=== PATIENT | female | born 1985 | race African-American/Black ===

== ENCOUNTER 2025-01-26 21:42 | Emergency (ER) | payer SELFPAY ==
[2025-01-26 21:52] VITALS: BP 187/111
[2025-01-27 00:03] VITALS: BP 175/112
--- NOTE | 2025-01-27 00:15 | ED.GENMED ---
History of Present Illness
General
Chief Complaint: Musculo-Skeletal Complaint
Source: patient
Exam Limitations: none
Time Seen by Provider: 01/27/25 00:01
Nursing documentation reviewed up to this point in time: agreed with
History of Present Illness
History of Present Illness:
39-year-old woman with no significant past medical history, takes no medicines on a daily basis presents with 1 week history of left shoulder pain. She states left shoulder pain began upon waking approximately 1 week ago, has been persistent and
worsening throughout the week, radiating to her left lateral neck, left upper chest wall as well as to her left upper arm. 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 She has been taking aspirin, 975 mg
sporadically, only once per day with the last dose this morning. No significant improvement with the aspirin.
She denies cough nor shortness of breath. Left shoulder pain is worse with movement of her shoulder, worse with rotation of her neck and occasionally worse with deep breath.
She has not had a rash, no fever no chills, no weakness nor numbness. No history of similar episodes in the past.
She denies leg pain or swelling but did drive to and from [facility] 2 weeks ago.
Last menstrual period 2 to 3 months ago, denies chance of states her menses is generally irregular.
Past History
Past History
ED Past Medical History: None
ED Past Surgical History: None
Social History
Tobacco: Non-smoker
Alcohol: None
Drug: None
Personal: Single
Living: with family
Employment: Employed
Family History
Family History: Hypertension
Phy Exam
Physical Exam
Physical Exam:
GENERAL: 39-year-old overweight woman appears her stated age, bright and alert, pleasant, appears mildly uncomfortable but easily communicative. Significantly hypertensive. Monitor shows normal sinus rhythm to mild sinus tachycardia.
EYE: pupils equal and reactive. anicteric
NECK: Supple, no midline bony tenderness, no meningismus, no significant adenopathy. There is mild tenderness left lateral paracervical musculature as well as mild to moderate tenderness left superior trapezius musculature.
ENT: posterior pharynx is clear, oral mucosa is moist. TM clear b/l, nares patent.
CARDIAC: Regular rate rhythm, mildly tachycardic. no murmur. Mild tenderness left upper chest wall. No crepitus nor palpable bony abnormality.
LUNGS: Clear breath sounds bilaterally, no acute respiratory distress, no wheezes/rales/rhonchi
ABDOMEN: Soft, nondistended, without focal tenderness. normoactive BS.
NEUROLOGICAL: Alert and oriented x3, no focal neuro deficits.
SKIN: Warm and dry, normal color, skin intact. No rash.
MUSCULOSKELETAL: No C/C/E. peripheral pulses are full and equal b/l. Moderate tenderness about the left shoulder. Full range of motion with increased pain with abduction greater than 90 degrees. No soft tissue swelling, no crepitus.
PSYCH: Normal and appropriate interaction.
Course
Orders/Labs/Results
Orders:
Orders
01/26/25 21:44
EKG [Electrocardiogram (*1)] Stat
Reason for Study: Chest Pain
EKG- Treatment ONCE
01/27/25 00:14
Ketorolac [Toradol] 30 mg IV NOW STA
Test Result ONCE
01/27/25 00:34
Complete Blood Count/With Diff Urgent
Comprehensive Metabolic Panel Urgent
D-Dimer Urgent
HCG, Serum Qualitative Screen Urgent
TSH Reflex To Free T4 Urgent
Troponin I Urgent
01/27/25 01:39
Shoulder, Left, Trauma CR [CR Shoulder, Trauma - Left] Urgent
Comment:
Reason For Exam: pain left shoulder x 1 week
01/27/25 03:16
Prednisone [Deltasone] 50 mg PO NOW STA
Abnormal Lab Results
01/27/25
00:34
Hgb 11.5 L g/dL
(12.0-16.0)
Hct 35.4 L %
(37.0-47.0)
MCV 73.6 L fL
(81.0-99.0)
MCH 23.9 L pg
(27.0-31.0)
MCHC 32.5 L g/dL
(33.0-37.0)
RDW 15.5 H %
(11.5-14.5)
MPV 12.7 H fL
(7.4-10.4)
Absolute Neuts (auto) 7.7 H 10^3/uL
(1.4-6.5)
Chloride 109 H mmol/L
(98-107)
Creatinine 1.2 H mg/dL
(0.6-1.0)
Glucose 128 H mg/dl
(70-99)
01/27/25 00:34
01/27/25 00:34
Vital Signs
Initial and Last Documented VS:
Initial Vital Signs
Temp Pulse Resp BP Pulse Ox
98.2 F 117 20 187/111 97
01/26/25 21:52 01/26/25 21:52 01/26/25 21:52 01/26/25 21:52 01/26/25 21:52
Last Documented Vital Signs
Temp Pulse Resp BP Pulse Ox
98.2 F 86 23 158/95 95
01/26/25 21:52 01/27/25 02:00 01/27/25 02:00 01/27/25 02:00 01/27/25 02:00
MDM/Problems Addressed
Differential Diagnosis Includes:
Concern for left shoulder strain/tendinitis, trapezius rommel-fasciitis.
Patient noted to be significantly hypertensive as well as mild sinus tachycardia, and there is an element of pleuritic pain, worse with deep breath. Concern for potential PE, ACS, pleurisy, pneumonia, dissection.
No radicular signs or symptoms, no focal neurologic deficits.
EKG shows sinus tachycardia, nonspecific ST-T wave abnormalities. No old EKG to compare.
Will check labs including troponin, D-dimer. Will trial a dose of Toradol.
Will consider imaging depending on laboratory results and clinical course.
*Radiology
Radiology exam reviewed: preliminary read by ED provider (Left shoulder x-rays unremarkable.)
*Pulse Oximetry
Patient hypoxic: no
*EKG
Interpreted by ED Provider?: Yes
Interpretation: abnormal
Comparison EKG: no comparison EKG present
Rate: tachycardiac
Rhythm: sinus
[place]: normal axis
Interval: normal interval
QRS Pattern: normal QRS
Ischemia: non-specific ST changes
*Allied Health Instructor Interpretation
Rate: normal and tachycardiac
*Critical Care Note
Total Time (30-74mins, 75-104mins- exclusive of procedures): Not Applicable
Update Note
Update Note:
03:10
Patient sleeping upon reevaluation. Awakens easily.
Notes moderate improvement in pain.
Left shoulder x-ray is unremarkable.
Hypertension improving. 150/90. Patient denies history of hypertension but strong family history of hypertension. She states her blood pressure was reportedly normal with last visit with her PCP which was approximately 1 year ago.
Labs are unremarkable including negative D-dimer, normal troponin. Creatinine 1.2 thus we will hold off on additional NSAIDs and instead will plan for a course of prednisone. May take Tylenol as needed for mild pain. A prescription for tramadol
will be provided for as needed moderate pain.
Recommend rest, local heat with prompt follow-up with PCP for recheck.
ED Attending Note
-
Portions of this chart may have been created with voice recognition software.� Occasional wrong word or��sound alike� substitutions may have occurred due to the inherent limitations of voice recognition software.
Discharge Plan
Departure
Patient Disposition: Home (Routine Discharge)
Date of Disposition: 01/27/25
Time of Disposition: 03:13
Patient with high blood pressure during this ER visit?: Yes
Condition: Good
Discharge Problem:
left trapezius myofasciitis
Instructions: Shoulder pain - ED discharge instructions, BLOOD PRESSURE
Prescriptions:
New
prednisone 10 mg Tablet
See Rx Instructions .ROUTE .COMPLEX Qty: 30 0RF
Rx Instructions:
Take By Mouth:
40 mg daily x3 days, 30 mg daily x3 days,
20 mg daily x3 days, 10 mg daily x3 days.
tramadol 50 mg tablet
50 mg PO Q8H PRN (Reason: Pain) Qty: 10 0RF
Referrals:
UNKNOWN - PT DOES,NOT KNOW [Family Provider] - Call in 1-3 days for appt
Activity Restrictions/Additional Instructions:
Follow-up with your family doctor next week for recheck.
Interventions
Interventions:
*Risk Screen - Suicide Last Done: 01/27/25 00:36
*General Assessment Last Done: 01/26/25 21:52
*Neglect/Abuse Screening Last Done: 01/27/25 00:36
*ED- Fall Risk Assessment Last Done: 01/27/25 00:36
*ED COVID-19 Vaccine History Last Done: 01/27/25 00:36
*Nursing Disposition Last Done: 01/27/25 03:42
ED-Musculoskeletal Assessment Last Done: 01/27/25 00:36
Discharge Date and Time
Discharge Date/Time: 01/27/25 03:47
Print Language: HAITIAN
[2025-01-27 00:36] VITALS: BMI 20.2
[2025-01-27] MEDS: TORADOL 30 MG IV (00:46)
[2025-01-27 00:55] LABS: % Basophils 0.3 % (0-2); % Eosinophils 0.7 % (0-6); % Immature Granulocytes 0.4 % (0-0.5); % Lymphocytes 21.3 % (20.5-51.1); % Monocytes 3.8 % (1.7-9.3); % Neutrophils 73.5 % (42.2-75.2); Absolute Eosinophils 0.1 10^3/uL (0-0.7); Absolute Lymphocytes 2.2 10^3/uL (1.2-3.4); Absolute Monocytes 0.4 10^3/uL (0.1-0.6); Absolute Neutrophils 7.7 10^3/uL (1.4-6.5); Hematocrit 35.4 % (37.0-47.0); Hemoglobin 11.5 g/dL (12.0-16.0); Mean Corp Hgb Conc. 32.5 g/dL (33.0-37.0); Mean Corpuscular Hgb 23.9 pg (27.0-31.0); Mean Corpuscular Volume 73.6 fL (81.0-99.0); Mean Platelet Volume 12.7 fL (7.4-10.4); Nucleated Red Blood Cells % 0 %; Platelet Count 262 10^3/uL (130-400); Red Blood Cell Count 4.81 10^6/uL (4.20-5.40); Red Cell Dist. Width 15.5 % (11.5-14.5); White Blood Cell Count 10.4 10^3/uL (4.8-10.8)
[2025-01-27 01:10] LABS: ALT (SGPT) 18 U/L (0-35); AST (SGOT) 19 U/L (14-36); Albumin 4.4 g/dl (3.5-5.0); Alkaline Phosphatase 78 U/L (38-126); Blood Urea Nitrogen 16 mg/dl (7-17); Carbon Dioxide 23 mmol/L (22-30); Chloride 109 mmol/L (98-107); Estimated Creatinine Clearance 57 ml/min; Glucose 128 mg/dl (70-99); Potassium 4.1 mmol/L (3.5-5.1); Sodium 140 mmol/L (135-145); Total Bilirubin 0.5 mg/dl (0.2-1.3); Total Protein 7.3 g/dl (6.3-8.2); eGFR 59.42
[2025-01-27 01:18] LABS: D-Dimer < 0.27 ug/mlFEU (0.00-0.50)
[2025-01-27 01:20] LABS: Troponin I < 0.012 ng/ml
[2025-01-27 01:24] VITALS: BP 163/108
[2025-01-27 01:40] LABS: TSH Reflex To Free T4 0.95 uIU/ml (0.47-4.68)
[2025-01-27 01:58] LABS: HCG, Serum Qualitative Screen Negative
[2025-01-27 02:00] VITALS: BP 158/95
--- NOTE | 2025-01-27 03:10 | EDRN ---
Dr. Yañez back in to re-assess patient, patient is sleeping at this time, Dr. Yañez woke patient to update her, patient to be discharged
[2025-01-27] MEDS: DELTASONE 50 MG PO (03:25)
== END 2025-01-27 03:47 | disposition home or self-care (01) ==
LOC: EMR 21:42
PROVIDERS: EMERGENCY PHYSICIAN Emergency Medicine
DX: M60.9 Myositis, unspecified (principal); R03.0 Elevated blood-pressure reading, without diagnosis of hypertension
CPT/HCPCS: 99285; 96374; 73030; 80053; 84443; 84484; 84703; 85025; 85379; 93005